=== PATIENT | male | born 1965 | race Caucasian/White ===

== ENCOUNTER 2017-03-13 06:49 | Day surgery (SDC) | payer OTHER ==
[2017-03-13 07:53] VITALS: BMI 24.6
[2017-03-13] MEDS ORDERED: Lactated Ringer's 500 ML IV ONE ×2 (07:54)
[2017-03-13] MEDS ORDERED: Propofol 10 mg/ml Inj (20 ML) ONE (08:03)
[2017-03-13] MEDS ORDERED: Lidocaine Hydrochloride 10 ML INJ ONE (08:07)
[2017-03-13] MEDS ORDERED: Pantoprazole 40 mg EC Tab PO STA (08:16)
--- NOTE | 2017-03-13 08:16 | CP.SDSHP ---
Same Day Surgery H & P - History Proposed Procedure: egd. colonoscopy Pre-Op Diagnosis: heartburn. rectal bleeding. screening for colon cancer - Previous Medical/Surgical History Cardiac: Hypertension Endocrine/Metabolic: Diabetes Pain: 0. No Pain Previous Surgical History: denies - Allergies Allergies: Allergies No Known Allergies Allergy (Verified 09/13/16 17:38) - Physical Exam Vital Signs: Vital Signs 03/13/17 03/13/17 07:08 08:05 Temperature 98.9 F 98.9 F Pulse Rate 76 75 Respiratory 19 19 Rate Blood Pressure 135/81 126/83 O2 Sat by Pulse 100 100 Oximetry Mental Status: Alert & Oriented x3 Neuro: WNL Heart: WNL Lungs: WNL GI: WNL - Impression Impression: heartburn. rectal bleeding. screening for colon cancer Pt. Evaluated Today:Candidate for Anesthesia & Procedure: Yes - Date & Time Date: 03/13/17 Time: 08:15 Short Stay Discharge - Short Stay Discharge Admitting Diagnosis/Reason for Visit: ENCOUNTER FOR SCREENING FOR MALIGNANT NEOPLASM OF Disposition: HOME/ ROUTINE
[2017-03-13 08:59] VITALS: O2SAT 100
[2017-03-13 10:26] VITALS: BP 108/60; PULSE 62; RESP 13; TEMP 97.2
== END 2017-03-13 10:05 | disposition home or self-care (01) ==
LOC: C.ENDO 06:49
PROVIDERS: ATTEND Internal Medicine Gastroenterology
DX: D12.3 Benign neoplasm of transverse colon (principal); K64.8 Other hemorrhoids; K29.50 Unspecified chronic gastritis without bleeding; K44.9 Diaphragmatic hernia without obstruction or gangrene; K20.9 Esophagitis, unspecified; K21.9 Gastro-esophageal reflux disease without esophagitis; K25.9 Gastric ulcer, unspecified as acute or chronic, without hemorrhage or perforation; I10 Essential (primary) hypertension; E11.9 Type 2 diabetes mellitus without complications; Z79.84 Long term (current) use of oral hypoglycemic drugs; A04.8 Other specified bacterial intestinal infections
CPT/HCPCS: 43239; 45380; 82948; 88305; 88312; 88313; 88342; J2704; J7120